=== PATIENT | female | born 1995 | race Caucasian/White ===

== ENCOUNTER 2016-09-18 13:13 | Emergency (ER) | payer BC ==
[~2016-09-18] VITALS: Wt 73.0 kg
[~2016-09-18 13:13] MED LIST: BACTDS PO; CEPH500C PO; MUPI22OI2 NASAL
--- NOTE | 2016-09-18 14:49 | ERD ---
ER Documentation Chief Complaint Date/Time DATE: 09/18/16 TIME: 14:41 Chief Complaint WOUND CHECK FOR ABCESS I&D HPI 21-year-old otherwise healthy female returns to the emergency department for a recheck of her recent incision and drainage to the right inner thigh. Patient was seen and treated here 2 days ago and underwent an incision and drainage procedure. Patient still experiencing a 2 out of 10 pain which is exacerbated by certain certain positions. Patient does note however that beginning the medication she has experienced body aches and subjective fever. Patient inquires about the use of Tylenol with her antibiotics today. Otherwise patient states her abscess symptoms have improved. ROS All systems reviewed and are negative except as per history of present illness. Medications Home Meds Active Scripts Mupirocin* (Bactroban*) 2% -22 Gram Oint...g., 1 APPLIC NASAL BID for 7 Days, EA Prov:GORGE,BARRETT C 09/16/16 Sulfamethoxazole-Trimethoprim* (Bactrim* DS) 800-160 Mg Tab, 1 TAB PO BID for 7 Days, TAB Prov:BARRETT PENNINGTON C 09/16/16 Cephalexin* (Cephalexin*) 500 Mg Capsule, 500 MG PO Q6 for 7 Days, #28 CAP Prov:GORGE,BARRETT C 09/16/16 Allergies Allergies: Coded Allergies: No Known Drug Allergies (Verified Allergy, Unknown, 09/16/16) PMhx/Soc History of Surgery: No Anesthesia Reaction: No Hx Neurological Disorder: No Hx Respiratory Disorders: No Hx Cardiac Disorders: No Hx Psychiatric Problems: No Hx Miscellaneous Medical Probl: No Hx Alcohol Use: Yes Hx Substance Use: Yes Hx Tobacco Use: Yes Physical Exam Vitals Vital Signs Date Time Temp Pulse Resp B/P Pulse Ox O2 Delivery O2 Flow Rate FiO2 09/18/16 13:21 98.8 97 17 131/77 98 Physical Exam Const: Well-developed, nontoxic-appearing, in no acute distress Head: Atraumatic Eyes: Normal Conjunctiva ENT: Normal External Ears, Nose and Mouth. Neck: Full range of motion..~ No meningismus. Resp: Clear to auscultation bilaterally Cardio: Regular rate and rhythm, no murmurs Abd: Soft, non tender, non distended. Normal bowel sounds Skin: Back: No midline or flank tenderness Ext: No cyanosis, or edema Neur: Awake and alert Psych: Normal Mood and Affect GHADA TODD PA-C Sep 18, 2016 14:49
[2016-09-18] MEDS ORDERED: IBUP-1542 PO (14:51)
== END 2016-09-18 19:05 | disposition home or self-care (01) ==
LOC: FTE 13:13 → E/R 19:05
DX: Z48.01 Encounter for change or removal of surgical wound dressing (principal)
CPT/HCPCS: 99281